=== PATIENT | female | born 1950 | race Hispanic/Latino ===

== ENCOUNTER 2017-10-21 12:48 | Outpatient (CLI) | payer OTHER ==
--- NOTE | 2017-10-21 16:19 | Ultrasound Report ---
TRANSABDOMINAL AND TRANSVAGINAL PELVIC ULTRASOUND: 10/21/17 12:48:00 CLINICAL: Postmenopausal pelvic pain. FINDINGS: Transabdominal and transvaginal pelvic ultrasound demonstrated a small uterus measuring 4.2 x 2.5 x 2.9 cm. Normal uterine contour and echogenicity.The endometrium mildly thickened and measures 8.3 mm AP thickness. Endometrium is also heterogeneous with a few tiny cysts. Ovaries are not identified. No adnexal mass. No free fluid. Normal urinary bladder. IMPRESSION: 1. Endometrial thickening and a few tiny endometrial cysts. Consider endometrial biopsy. 2. Ovaries are not identified. 3. No explanation for pelvic pain.
--- NOTE | 2017-10-21 16:22 | Ultrasound Report ---
ABDOMINAL ULTRASOUND: 10/21/17 12:48:00 CLINICAL: Abdominal pain. FINDINGS: High-resolution ultrasound demonstrates a normal size liver with normal contour. No liver mass. Normal hepatic vasculature and inferior vena cava. No gallbladder identified. Normal intrahepatic and extrahepatic bile ducts. The common bile duct measures 2.4 mm diameter. The pancreas is well imaged normal Normal abdominal aorta measuring 2.0 cm maximum. A normal spleen measures 10.2 x 4.6 x 4.5 cm. Normal kidneys with normal echogenicity and normal non-dilated renal collecting systems and ureters. The right kidney measures 10.4 x 4.3 x 4.3 cm. The left kidney measures 10.5 x 4.7 x 4.3 cm. No renal mass or calculus. No ascites or mass. IMPRESSION: Normal abdomen status post cholecystectomy.
== END 2017-10-21 12:49 | disposition home or self-care (01) ==
LOC: SPVWC 12:48
PROVIDERS: ATTEND Family Medicine
DX: N85.8 Other specified noninflammatory disorders of uterus (principal); Z78.0 Asymptomatic menopausal state; Z90.49 Acquired absence of other specified parts of digestive tract
CPT/HCPCS: 76700; 76830; 76856